=== PATIENT | female | born 1955 | race Caucasian/White ===

== ENCOUNTER → 2020-03-30 | Outpatient (CLI) | payer OTHER, SELFPAY ==
--- NOTE | 2020-03-30 | IMM_PTH ---
PATIENT: MANSI HERNANDEZ LOC: [facility] U#:[id number] AGE/SX: 65/F ROOM: RE03/30/[address]: Dr. Julioceasr Mart MD : 1955 BED: DIS: 03/30/2020 SPEC #: [id number] RECD: 04/04/20 12:08 STATUS: BARNEY REManav #: [id number] AMADEO: 03/30/20 00:[address]: Juliocesar Mart DEPT: IMMUNOHISTOCHEMISTRY RECD BY: Sandra Samson ENTERED: 04/04/20 12:09 SP TYPE: IMMUNO OTHR DR: Dr. Danny Arreguin MD Tissues: A - Right breast, NOS B - Right breast, NOS C - Right breast, NOS Procedures: SMA (add) Calponin-1(initial) CALPONIN-1 (add) CK5-6 (add) CK8 (add) CLAY-2 (add) E-CAD (add) ER (add) HER2 [place] (add) KI-67 (add) P53 (add) [place] (add) Pankeratin (add) P40 (add) PHYSICIAN & [place] [phone] SPECIMEN INFORMATION: Tissue Source: A - Right breast deep mass behind nipple, B - Right breast 1 o'clock, C - Right breast 2?o'clock Clinical Info: Right breast mass x3 Specimen Number: [id number] A-C CPT code: 39534 x3, 15218 x16, 07987 x3 METHODOLOGY: Deparaffinized sections of prefer/formalin-fixed tissue or PAP/DQ stained slides are incubated with monoclonal/polyclonal antibodies/oligonucleotide probes. Localization is made via biotin free immunoperoxidase method. Appropriate controls are performed and reacted as expected. Results on target cell population are indicated in the following table: RESULTS: ANTIBODY / CLONE RESULT Block A Calponin-1 (AT082W) positive CK5-6 (D5 & 1684) positive AE1-3 (AE1/AE3/PCK26) positive Actin (1A4) positive Block B Calponin-1 (OA297A) negative CK5-6 (D5 & 1684) positive AE1-3 (AE1/AE3/PCK26) positive Actin (1A4) negative P53 (DO-7) positive, rare cells Ki-67 (30-9) positive, low CK8 (77xxcgF70) positive Calponin-1 (IX898D) negative P40 (BC28) negative E-Cad (ECH-6) positive CLAY-2 (SP21) positive MORPHOMETRIC ANALYSIS ER (clone 6F11) >95%, strong intensity KY (clone 16/1E2) >95%, strong intensity Her-2Neu (clone CB11) 0 Block C Calponin-1 (HI727J) positive CK5-6 (D5 & 1684) positive AE1-3 (AE1/AE3/PCK26) positive Actin (1A4) positive The prognostic test for HER2 is performed on formalin-fixed paraffin embedded tissue. A 3+ (positive) staining pattern is defined as intense, homogeneous, complete, circumferential membranous staining in >10% of contiguous tumor cells. A similar weak (2+) staining pattern is interpreted as equivocal. PAKO follow-up testing is recommended for all equivocal cases. Positivity/negativity for ER/KY is reported if > or < 1% of the tumor cells are immuno- reactive, respectively. The ASCO/CAP criteria is used for scoring. Reference: Journal of Clinical Oncology, 2013; 31:1490-0190 & 2010; 16:4364-7541. Duration of fixation: 28 Hrs; Sample Adequate: Yes. These assays have not been validated on decalcified tissues. Results should be interpreted with caution given the likelihood of false negativity on decalcified specimens. These tests were developed and their performance characteristics determined by [facility]. They may not have been cleared or approved by the U.S. Food and Drug Administration. The FDA has determined that such clearance or approval is not necessary. The above immunohistochemical/dualISH markers are ordered and reviewed by the Pathologist. INTERPRETATION: A. Right breast deep mass behind nipple, biopsy: Encapsulated papillary carcinoma. B. Right breast 1 o'clock, biopsy: Invasive ductal carcinoma, nuclear grade 2. Positive for estrogen receptors (favorable prognostic indicator). Positive for progesterone receptors (favorable prognostic indicator). Negative for overexpression of NLY0evm. C. Right breast 2?o'clock, biopsy: Encapsulated papillary carcinoma. AM:juan 04/24/20
[2020-03-30 13:45] VITALS: BMI 40.4
--- NOTE | 2020-03-30 14:30 | BRBX_PTH ---
PATIENT: MANSI HERNANDEZ LOC: [facility] U#:[id number] AGE/SX: 65/F ROOM: RE03/30/[address]: Dr. Juliocesar Mart MD : 1955 BED: DIS: 03/30/2020 SPEC #: [id number] RECD: 03/30/20 15:34 STATUS: BARNEY JULIO CÉSAR #: [id number] AMADEO: 03/30/20 14:[address]: Juliocesar Mart DEPT: SURGICAL PATHOLOGY RECD BY: Letty Chavarria ENTERED: 04/03/20 09:23 SP TYPE: BREAST BX OTHR DR: Dr. Danny Arreguin MD Tissues: A - Right breast, NOS B - Right breast, NOS C - Right breast, NOS Procedures: Surgery Specimen Level IV HEADER OPERATION: Right breast biopsy x3 PRE-OP DIAGNOSIS: Right breast mass x3 TISSUE SUBMITTED: A - Right breast deep mass behind nipple, B - Right breast 1 o'clock superficial, C - Right breast 2 o'clock MICROSCOPIC DIAGNOSIS A. Right breast, deep mass behind nipple, needle core biopsy: Encapsulated papillary carcinoma. See comment. B. Right breast at 1 o'clock, superficial, needle core biopsy: Invasive ductal carcinoma, nuclear grade 2. See comment. C. Right breast, 2 o'clock, needle core biopsy: Encapsulated papillary carcinoma. See comment. AM:juan 04/10/20 COMMENT A-C. Immunohistochemistry ([id number]) supports the above diagnosis. B. ER/NV/Cog7gdy studies are being performed on sections of tumor and the results from this study will be reported separately ([id number]). This case was seen in consultation with Dr. Gibson of [place]. Please see complete consultative report in EMR. Case has been reviewed in consultation with Dr. Rosenbaum who concurs with the above diagnosis. IDC:SJ MICROSCOPIC DESCRIPTION Slides are reviewed. GROSS DESCRIPTION A - Received in fixative is one container labeled with the patient's name and designated right breast deep below nipple. The specimen consists of multiple elongated fragments of robbins-yellow fibroadipose tissue that in aggregate measure 1.5 x 0.2 x 0.1 cm. The specimen is totally submitted in one cassette. B - Received in fixative is one container labeled with the patient name and designated 10 o'clock right breast. The specimen consists of multiple elongated fragments of robbins-yellow fibroadipose tissue that in aggregate measure 2.5 x 0.4 x 0.1 cm. The entire specimen is submitted in one cassette. C - Received in fixative is one container labeled with the patient name and designated right breast 2 o'clock. The specimen consists of multiple elongated fragments of robbins-yellow fibroadipose tissue that in aggregate measure 2 x 0.3 x 0.1 cm. The entire specimen is submitted in one cassette. / SJ:rg 04/03/20 TC:0 CPT: 62078 x3
== END | disposition home or self-care (01) ==
LOC: LABSPEC 15:46
PROVIDERS: PCP Family Medicine; Referring Provider Surgery; Visit Provider Surgery
DX: N63.10 Unspecified lump in the right breast, unspecified quadrant (principal)
CPT/HCPCS: 88305; 88341; 88342

== ENCOUNTER → 2020-04-21 | Outpatient (CLI) | payer OTHER, SELFPAY ==
[2020-03-30 13:45] VITALS: BMI 40.4
--- NOTE | 2020-04-21 09:13 | MRI_ITS ---
STUDY: BILATERAL BREAST MR WITHOUT AND WITH CONTRAST REASON FOR EXAM: Female, 65 years old. New RIGHT breast cancer TECHNIQUE: Multi-sequence multi-echo imaging of both breasts was performed with a dedicated breast coil. T1-weighted and T2-weighted images were performed before the administration of contrast. T1-weighted images were also performed after the administration of IV DOTAREM 20CC without complications. COMPARISON: Mammogram studies dated 02/16/2020 and 02/24/2020. Breast ultrasounds dated 02/24/2020 and 03/30/2020 were also reviewed. FINDINGS: RIGHT BREAST: The breast tissue is scattered fibroglandular densities with minimal background enhancement. There are enhancing masses seen in the medial aspect of the right breast. These are located both superiorly and inferiorly within the breast. 2 were biopsied and shown to represent malignancy reportedly. The largest is located medially near the 3 o''clock position measuring approximately 15 mm. This is the largest mass. I do not have the pathology report available for review. There is increased enhancement involving the medial aspect of the right breast. Dedicated ultrasonography of the entire medial aspect of the right breast is recommended. Other areas may need to be biopsied prior to the patient being taken to surgery or the patient and her surgeon may opt to have the medial aspect of the breast removed in order to be sure that all of these areas are included in the lumpectomy site. There are enhancing axillary lymph nodes however they do appear to have fatty hilums. LEFT BREAST: The breast tissue is fatty with minimal background enhancement. There are no abnormal enhancing masses or areas of non-mass enhancement in the left breast. There are no enlarged or abnormal lymph nodes. There is no abnormality in the visualized regions of the chest or liver. MRI/Breast Bilateral W/O and W IMPRESSION: There are malignant appearing masses in the medial aspect of the right breast. There are additional masses seen on the MRI that were not biopsied. Dedicated ultrasonography of the entire right breast is recommended unless the patient and her physician opt to have the entire medial aspect of the breast surgically removed at the time of the lumpectomy. CATEGORY: BIRADS Category 6: Known Biopsy-Proven Malignancy - Appropriate Action Should Be Taken. A letter regarding these results will be sent to the patient by the facility within 30 days. Electronically Signed: Lavonne Bender DO at 12:53 EDT Tel , Service support ,
== END | disposition home or self-care (01) ==
LOC: MRI 09:13
PROVIDERS: PCP Family Medicine; Referring Provider Surgery; Visit Provider Surgery
DX: C50.919 Malignant neoplasm of unspecified site of unspecified female breast (principal)
CPT/HCPCS: 77049; A9575; A4216; C8908

== ENCOUNTER 2020-04-26 14:08 | Observation (INO) | payer OTHER, SELFPAY ==
[2020-03-30 13:45] VITALS: BMI 40.4
--- NOTE | 2020-04-19 15:05 | EKG12_ITS ---
Test Reason : PRE OP Blood Pressure : / mmHG Vent. Rate : 083 BPM Atrial Rate : 083 BPM P-R Int : 158 ms QRS Dur : 092 ms QT Int : 392 ms P-R-T Axes : 049 -19 024 degrees QTc Int : 460 ms Normal sinus rhythm Normal ECG Confirmed by MEGAN BULLOCK ([id number]), news assignment editor TONE HOBBS ([id number]) on 04/24/2020 12:06:35 PM Referred By: Juliocesar Mart Confirmed By:MEGAN BULLOCK
[2020-04-19 16:56] LABS: Absolute Lymphocyte Count 2.68 X10^3/uL (0.83-4.51); Basophil# 0.03 X10^3/uL; Basophil% 0.5 % (0-1); Eosinophil# 0.21 X10^3/uL; Eosinophils% 3.4 % (0-5); Hematocrit 37.2 % (37-47); Hemoglobin 12.5 g/dL (12.0-15.0); Lymphocyte # 2.68 X10^3/ul (4.0); Mean Corp Hgb Conc 33.6 g/dL (32-36); Mean Corpuscular Volume 89.4 fL (81-99); Mean Platelet Vol. 9.5 fl (6.2-12.0); Monocyte# 0.34 X10^3/uL; Monocyte% 5.5 % (0-10); NRBC Flagged by Analyzer 0 % (0-5); Neutrophil # 2.97 X10^3/uL (2.7-7.7); Neutrophil % 47.6 % (47-70); Platelet Count 261 K/mm3 (150-450); RBC Distribution Width CV 12.7 % (11.6-14.6); RBC Distribution Width SD 40.9 fl (35.1-43.9); Red Blood Count 4.16 M/mm3 (4.2-5.4); White Blood Count 6.2 K/mm3 (4.4-11.0)
[2020-04-19 17:14] LABS: Anion Gap 4 (5-15); BUN 11 mg/dL (7-18); BUN/Creat Ratio 19.6 RATIO (10-20); Calcium,Total 8.8 mg/dL (8.5-10.1); Chloride 108 mmol/L (98-107); Creatinine, Serum 0.56 mg/dL (0.55-1.02); EST Glomerular Filtration Rate 116 mL/min (>60); Est Glom Filt Rate - Afr Amer 140 mL/min (>60); Glucose 79 mg/dL (74-106); Potassium 3.6 mmol/L (3.5-5.1); Sodium Level 138 mmol/L (136-145)
[2020-04-19 17:32] LABS: Thyroid Stim Hormone (TSH) 0.06 uIU/mL (0.358-3.74)
[2020-04-26] VITALS (14 sets, daily range): BP systolic 132–174; BP diastolic 67–92; PULSE 68–89; RESP 16–18; TEMP 36.4–36.8; O2SAT 93–99; BMI 41.2
--- NOTE | 2020-04-26 | IMM_PTH ---
PATIENT: MANSI HERNANDEZ LOC: [facility] U#:[id number] AGE/SX: 65/F ROOM: [place]307 RE04/26/[address]: Dr. Juliocesar Mart MD : 1955 BED: 1 DIS: 04/27/2020 SPEC #: [id number] RECD: 05/01/20 11:42 STATUS: BARNEY REQ #: [id number] AMADEO: 04/26/20 00:[address]: Juliocesar Mart DEPT: IMMUNOHISTOCHEMISTRY RECD BY: Sandra Samson ENTERED: 05/01/20 11:45 SP TYPE: IMMUNO OTHR DR: Dr. Danny Arreguin MD Tissues: A - Axillary lymph node, NOS B - Right breast, NOS Procedures: E-CAD (initial) CALPONIN-1 (add) CK7 (add) Pankeratin (initial) Pankeratin (add) P40 (add) PHYSICIAN & INSTITUTION [place] [id number] SPECIMEN INFORMATION: Tissue Source: A - [place] nodes right breast, B - Right breast Clinical Info: Malignant neoplasm of right breast Specimen Number: [id number] A1-3, B8 CPT code: 62117 x2, 31508 x7 METHODOLOGY: Deparaffinized sections of prefer/formalin-fixed tissue or PAP/DQ stained slides are incubated with monoclonal/polyclonal antibodies/oligonucleotide probes. Localization is made via biotin free immunoperoxidase method. Appropriate controls are performed and reacted as expected. Results on target cell population are indicated in the following table: RESULTS: ANTIBODY / CLONE RESULT Block A1 AE1-3 (AE1/AE3/PCK26) positive (micrometastasis) CK7 (OV-TL12/30) positive (micrometastasis) Block A2 AE1-3 (AE1/AE3/PCK26) negative CK7 (OV-TL12/30) negative Block A3 AE1-3 (AE1/AE3/PCK26) negative CK7 (OV-TL12/30) negative Block B8 P40 (BC28) negative * Calponin-1 (NI245G) negative * E-Cad (ECH-6) positive *?Focally positive in the area of encapsulated papillary carcinoma. These tests were developed and their performance characteristics determined by [facility]. They may not have been cleared or approved by the U.S. Food and Drug Administration. The FDA has determined that such clearance or approval is not necessary. The above immunohistochemical/dualISH markers are ordered and reviewed by the Pathologist. INTERPRETATION: A. [place] lymph nodes, right, biopsy: One out of four lymph nodes positive for micrometastatic carcinoma (0.5 mm in greatest dimension). B. Right breast, mastectomy: Foci of encapsulated papillary carcinoma with adjacent areas of invasive ductal carcinoma. SJ:juan 05/02/20 Case has been reviewed in consultation with Dr. Gaitan who concurs with the above diagnosis. IDC:AM
--- NOTE | 2020-04-26 | AXNB_PTH ---
PATIENT: MANSI HERNANDEZ LOC: [facility] U#:[id number] AGE/SX: 65/F ROOM: [facility] RE04/26/[address]: Dr. Juliocesar Mart MD : 1955 BED: 1 DIS: 04/27/2020 SPEC #: [id number] RECD: 04/26/20 12:51 STATUS: BARNEY REManav #: [id number] AMADEO: 04/26/20 00:[address]: Juliocesar Mart DEPT: SURGICAL PATHOLOGY RECD BY: Sandra Samson ENTERED: 04/26/20 13:15 SP TYPE: AX NODE BX OTHR DR: Dr. Danny Arreguin MD Tissues: A - Axillary lymph node, NOS B - Right breast, NOS Procedures: Frozen Section (charge) Frozen Section Add'l ([facility]) Surgery Specimen Level V Surgery Specimen Level HEADER OPERATION: Breast mastectomy with sentinel lymph node biopsy PRE-OP DIAGNOSIS: Malignant neoplasm of overlapping sites of right breast; ER positive TISSUE SUBMITTED: A - [place] nodes right breast, FS, B - Right breast, short stitch - superior, long stitch - lateral FROZEN SECTION DIAGNOSIS A. [place] lymph nodes, right, biopsy: Four out of four lymph nodes, negative for metastatic carcinoma. SJ:juan 04/26/20 MICROSCOPIC DIAGNOSIS A. [place] lymph nodes, right, biopsy: One out of four lymph nodes is positive for micrometastatic carcinoma (0.5 mm in greatest dimension). B. Right breast, mastectomy: Three foci of encapsulated papillary carcinoma with adjacent invasive ductal carcinoma. cancer summary below. SJ:juan 05/01/20 BREAST CANCER SUMMARY Procedure - total mastectomy (including nipple and skin) Specimen laterality - right Invasive tumor: Tumor site - medial portion of the breast and 4 cm lateral to the first lesion. Tumor size - size of greatest invasive focus - 0.3 x 0.2 cm Histologic type - invasive ductal carcinoma (no special type) Histologic grade ([place] grade): Glandular/tubular differentiation score - 2 Nuclear pleomorphism score - 1 Mitotic count score - 1 Overall grade - grade 1 (score of 4) Tumor focality - multiple foci of invasive carcinoma, adjacent to encapsulated papillary carcinoma. Number of foci - 3 Size of individual foci - two larger foci - 0.3 x 0.2 cm and third focus 0.2 x 0.2 cm. 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 Number of blocks with DCIS - 5 Architectural pattern - encapsulated papillary carcinoma, micropapillary and cribriform.. Nuclear grade - grade 2 Necrosis - not identified Lobular Carcinoma In Situ - not identified Tumor Extension: Skin - skin is present and not involved Nipple - DCIS does not involve nipple epidermis. Skeletal muscle - no skeletal muscle is present. Margins - invasive carcinoma and ductal carcinoma in situ are 1.2 cm away from the closest posterior margin of the excision. Regional Lymph Nodes: Total number of lymph nodes examined - 4 Number of sentinel lymph nodes examined - 4 Number of lymph nodes with micrometastases, - 1 Number of lymph nodes with macrometastases and isolated tumor cells - 0 Extranodal extension - not seen. Treatment effect - no known presurgical therapy. Lymphvascular invasion - not identified Dermal lymphvascular invasion - not identified Additional Pathologic Findings - changes consistent with previous biopsy site. Fibrocystic changes and intraductal hyperplasia with focal atypia. Ancillary Studies: Previously performed on same tumor (/ [id number]) ER: positive, >95%, strong intensity NE: positive, >95%, strong intensity Kla2dkm: negative (0) Microcalcifications - not identified Clinical History - Please make reference to previous specimen () right breast, deep mass behind nipple, needle core biopsy with diagnosis of encapsulated papillary carcinoma, right breast at 1 o'clock, superficial, needle core biopsy with diagnosis of invasive ductal carcinoma and right breast at 2 o'clock, needle core biopsy with diagnosis of encapsulated papillary carcinoma. Radiologic finding - not provided Pathologic Stage: pT1a(m) pN1mi pMx The above summary is in compliance with [employer] [place] [employer] (CAP) Cancer Protocols Checklist and [place] Joint Committee on Cancer (AJCC), Staging Manual, 8th Ed. COMMENT A. Immunohistochemistry ([id number]) supports the diagnosis of micrometastasis in one lymph node and it measures 0.5mm in greatest dimension. Extranodal extension is not seen. IHC ([id number]) supports the diagnosis of additional three out of three lymph nodes negative for metastatic carcinoma. B. Three foci of encapsulated papillary carcinoma are noted. The largest is present in blocks 5-7 and two smaller are noted in block 8 at the distance of 0.7 cm. Immunohistochemistry ([id number]) supports the above diagnosis of invasive carcinoma adjacent to the encapsulated papillary carcinoma. Case has been reviewed in consultation with Dr. Gaitan who concurs with the above diagnosis. IDC:AM MICROSCOPIC DESCRIPTION Slides are reviewed. GROSS DESCRIPTION A - Received fresh for frozen section diagnosis labeled with the patient's name is a specimen designated sentinel lymph nodes, right breast. The specimen consists of three pieces of yellow adipose tissue containing nodules measuring in aggregate 2.5 x 2.5 x 0.5 cm. The largest nodule measures 1.7 cm in greatest dimension. The entire specimen is submitted for frozen section diagnosis in three cassettes as follows: 1 - one lymph node, 2 - two lymph nodes, one lymph node inked black, 2 - one bisected lymph node. / SJ:rg 04/26/20 B - Received in fixative is one container labeled with the patient's name and designated right breast. The specimen consists of a mastectomy measuring 21 x 19 x 5 cm. The anterior surface contains a grossly unremarkable ellipse of skin measuring 19 x 5.5 cm that contains a centrally located nipple and areola. The specimen weighs 844 gm. The specimen is differentially inked as follows: posterior - black, superior - blue and inferior - green. Serial sections reveal a firm, robbins-white speculated lesion measuring 2 x 1 x 1 cm located in the medial portion of the breast. Lateral to this lesion at a distance 4 cm is an area of gel-filled biopsy cavity measuring 1.5 x 0.8 x 0.8 cm. The gel-filled biopsy cavity mass is located 1.2 cm from the closest (posterior) margin of excision. The remainder of the breast parenchyma is robbins-yellow with rare fibrous streaks. [employer] sections are submitted in 12 cassettes as follows: 1??nipple and areola, 2 - perpendicular superior and inferior margins, 3 - perpendicular medial margin, 4??perpendicular lateral margin, 5-7 - mass, totally submitted, 8-10 - gel-filled biopsy cavity, totally submitted, 11-12 - [employer] sections of uninvolved breast parenchyma adjacent to and away from tumor. / AM:juan 04/27/20 TC:0 CPT: 19329, 79863, 47381, 06535 x2 ADDENDUM ADDENDUM ADDENDUM ADDENDUM ADDENDUM ADDENDUM ADDENDUM ADDENDUM 05/23/2020 09:08 ADDENDUM 05/23/2020 09:08 ADDENDUM 05/23/2020 09:08 ADDENDUM 05/23/2020 09:08 ADDENDUM 05/23/2020 09:08 An order for Oncotype testing was received from Dr. Mi. This necessitated case review, block and slide selection by pathologist at [facility]. Breast Cancer Recurrence Score = 11 Results of the complete Oncotype testing ([facility] report) are viewable in EMR under: Reports - Pathology - Lab Pathology Report, Scanned.
--- NOTE | 2020-04-26 08:00 | NM_ITS ---
PROCEDURE: NUCLEAR MEDICINE Injection [place] Node - RIGHT breast(s). REASON FOR EXAM: Female, 65 years old. Right breast cancer. TECHNIQUE: [place] node localization using radionuclide methods of the RIGHT breast(s) was performed following subcutaneous administration of 1.2 mCi of of sulfur colloid Tc-99m. NM/Lymph Node Injection Only IMPRESSION: 1.2 mCi of technetium labeled sulfur colloid was injected subcutaneously in 4 equal aliquots at the biopsy site. Electronically Signed: Martin Hearn, at 9:30 EDT , Service support ,
[2020-04-26] MEDS: Lactated Ringers 1,000 ML 100 ML IV (08:27)
--- NOTE | 2020-04-26 10:37 | PCM.HP.STD ---
Problem List (1) Breast cancer, right Status: Acute Qualifiers: Breast location: overlapping sites of breast Estrogen receptor status: positive Patient sex: female Qualified Code(s): C50.811 - Malignant neoplasm of overlapping sites of right female breast; Z17.0 - Estrogen receptor positive status [ER+] History of Present Illness Date of Admission: 04/26/20 The patient is a 65 year old F who had previous biopsies that showed atypical cells. I repeated biopsies in the office which showed invasive ductal carcinoma as well as 2 areas of papillary carcinoma. Past Medical History Medical History: Medical History (Last Updated 04/13/20 @ 13:19 by Mirlande Shetty) Anxiety and depression F41.9, F32.9 Breast cancer C50.919 Hyperlipidemia E78.5 Hypothyroidism E03.9 Allergies No Known Allergies Allergy (Verified 04/26/20 08:01) Home Medications: Ambulatory Orders Medication Instructions Recorded atorvastatin 40 mg tablet 40 mg PO DAILY 03/27/20 levothyroxine 200 mcg capsule 200 mcg PO DAILY 03/27/20 magnesium 250 mg tablet 250 mg PO DAILY 03/27/20 sertraline 100 mg tablet 100 mg PO DAILY tab 03/27/20 Meloxicam [Mobic] 15 mg PO PRN PRN 04/19/20 Surgical History: Surgical History (Last Reviewed 03/30/20 @ 13:44 by Mirlande Shetty) History of 3 sections Z98.891 Tobacco Use: Vapor Review of Systems Constitutional: Denies: Anorexia, Fever HEENT: Denies: Difficulty Swallowing Cardiovascular: Denies: Chest Pain Respiratory: Denies: Cough, Shortness of Breath Gastrointestinal: Denies: Abdominal Pain, Nausea, Melena Genitourinary: Denies: Dysuria Skin: Denies: Jaundice Neurological: Denies: Blurred vision Hematologic/ Lymphatic: Denies: Anemia VTE Information - Inpt Only VTE Present on Admission: No VTE Mechan Device Prophylaxis: SCD's Patient Problems: Active and Suspected Problems (Last Updated 04/13/20 @ 13:19 by Mirlande Shetty) Breast cancer, right (Acute) - Physical Exam Vitals/I&O's: Vital Signs Temp Pulse Resp BP Pulse Ox 97.6 F L 79 16 132/80 H 98 04/26/20 08:10 04/26/20 08:10 04/26/20 08:10 04/26/20 08:10 04/26/20 08:10 Oxygen Delivery Method Room Air Weight: 247 lb 12.793 oz Body Mass Index (BMI) 41.2 General: Alert, Oriented x3 Lungs: Normal air movement Cardiovascular: Regular rate, Regular Rhythm Abdomen: Soft, Non Tender, Non-Distended Current Medications Lactated Ringer's () 1,000 mls @ 100 mls/hr IV .Q10H RUDY Last Admin: 04/26/20 08:27 Dose: 100 mls/hr Documented by: Assessment/Plan All Active Problems (Last Updated 04/13/20 @ 13:19 by Mirlande Shetty) Breast cancer, right (Acute) 65-year-old female with right breast cancer 1. The patient has multifocal disease of the right breast. She has 2 areas of papillary carcinoma as well as an area of invasive ductal carcinoma. I discussed this with her in detail in the office last week. I ordered an MRI which showed no disease in the left side. I recommended simple mastectomy on the right as well as sentinel lymph node biopsy. I discussed this with her in detail as well as the risks of bleeding, infection, flap necrosis, nerve injury, lymphedema, need for axillary dissection. The patient understood all the risks and is well to proceed. We discussed the current risks associated with COVID-19. While it is understood that there is a community spread of COVID-19, the risk of clay COVID-19 while at [facility] ([facility]) is very low; however, the risk cannot be completely mitigated because of the community spread of the disease. We discussed in detail the risk of exposure to and/or potential harm posed by the COVID-19 virus with having a surgery/procedure at this time versus the risk of delaying the surgery/procedure. It is not possible to know either the risk of delaying the surgery or procedure or chance of getting an infection with perfect accuracy, but a joint decision was made to proceed at this time with the scheduled surgery/procedure as indicated on the consent form. Patient was notified that we will need to comply with any screening or testing [facility] wishes to perform or that surgery may be delayed for any positive results. Juliocesar Mart MD Pager: [facility] [address] [place] [address], [address] [place] [address] Office:
[2020-04-26] MEDS: 0.9% Normal Saline (Pres. free 10 ML Vial (11:20)
[2020-04-26] MEDS: Bupivacaine Mpf 0.5% 30 ML VIAL (13:21)
--- NOTE | 2020-04-26 14:00 | OP.PCM_ITS ---
Problem List (1) Breast cancer, right Status: Acute Qualifiers: Breast location: overlapping sites of breast Estrogen receptor status: positive Patient sex: female Qualified Code(s): C50.811 - Malignant neoplasm of overlapping sites of right female breast; Z17.0 - Estrogen receptor positive status [ER+] Report of Operation Date of Procedure: 04/26/20 Pre-Operative Diagnosis: Right breast cancer Post-Operative Diagnosis: Same Surgery/Procedure Performed:: 1. Right simple mastectomy. 2. Right sentinel lymph node biopsy with injection of blue dye Specimen's removed: 1. Right breast. 2. Right axillary sentinel lymph node Drains: MAGUE to bulb suction Estimated Blood Loss (mL): 50 Description of Procedure: Patient was brought back to the operating room and general anesthesia was induced. The right area alert region was cleaned with alcohol and injected with 5 cc of half percent methylene blue. 5 cc of saline were then injected behind it and the breast was massaged for 5 minutes. The right breast and axillary region were prepped in the normal sterile fashion. An elliptical incision was made around the nipple on the right side. Flaps was raised superiorly using electrocautery. Next inferior flap was created using electrocautery as well. The posterior fascia of the breast was grasped with a Aye medially and working in a medial lateral fashion the breast was removed from the pectoralis muscle. The lateral attachments of the breast were divided and the breast was sent for pathology. Next through the incision the axillary fascia was incised and the radiotracer was used to locate several blue lymph nodes. These were clipped at their lymphatics and removed an ex vivo 10-second count was performed and there was no remaining blue lymph node or palpable lymph node or rad ioactive lymph nodes. Hemostasis was obtained in the axilla using clips. The pectoralis region and the flaps were irrigated copiously and suctioned dry. Hemostasis was obtained usual electrocautery. A drain was placed to the skin in the right lateral chest wall and placed over the pectoralis muscle under the flaps. The area was sprayed with Payam powder. The drain was sutured to the skin using a 3-0 nylon suture. Interrupted 3-0 Vicryl sutures were used to reapproximate the dermis. The epidermis was reapproximated using a running 4-0 Monocryl suture. Dermabond glue was then applied as well as bandages and an Sloan wrap. MAGUE was placed to bulb suction. Patient was awoken and taken to PACU in stable condition. - Admit VTE Documentation VTE Mechan Device Prophylaxis: SCD's
[2020-04-26] MEDS: 0.9% Normal Saline 1,000 ML 60 ML IV (17:00)
[2020-04-26] MEDS: Atorvastatin Calcium 40 MG Tablet PO (21:42)
[2020-04-26] MEDS: Acetaminophen 325 MG Tablet 650 MG PO (21:42)
[2020-04-26] MEDS: oxyCODONE 5 MG Tablet PO (21:43)
[2020-04-27 01:40] VITALS: BP 130/69; PULSE 72; RESP 16; TEMP 36.4; O2SAT 96
[2020-04-27] MEDS: oxyCODONE 5 MG Tablet PO ×2 (01:44→08:51)
[2020-04-27] MEDS: Acetaminophen 325 MG Tablet 650 MG PO (01:46)
[2020-04-27 05:05] VITALS: BP 127/75; PULSE 62; RESP 18; TEMP 36.6; O2SAT 92
[2020-04-27] MEDS: Levothyroxine 100 MCG Tablet 200 MCG PO (05:13)
[2020-04-27 06:03] LABS: Absolute Lymphocyte Count 1.46 X10^3/uL (0.83-4.51); Absolute Neutrophil Count 7.7 X10^3/uL (2.0-7.7); Basophil# 0.02 X10^3/uL; Basophil% 0.2 % (0-1); Hemoglobin 11.3 g/dL (12.0-15.0); Lymphocyte # 1.46 X10^3/ul (4.0); Mean Corp Hgb Conc 32.3 g/dL (32-36); Mean Corpuscular Hgb 30.1 pg (27.0-32.0); Mean Corpuscular Volume 93.1 fL (81-99); Mean Platelet Vol. 9.6 fl (6.2-12.0); Monocyte% 5.1 % (0-10); NRBC Flagged by Analyzer 0 % (0-5); Neutrophil # 7.72 X10^3/uL (2.7-7.7); Neutrophil % 79.4 % (47-70); Platelet Count 231 K/mm3 (150-450); RBC Distribution Width CV 12.9 % (11.6-14.6); RBC Distribution Width SD 43.6 fl (35.1-43.9); Red Blood Count 3.76 M/mm3 (4.2-5.4); White Blood Count 9.7 K/mm3 (4.4-11.0)
--- NOTE | 2020-04-27 06:03 | NURSING ---
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 Tolerated well.
[2020-04-27 06:19] LABS: Anion Gap 4 (5-15); BUN 17 mg/dL (7-18); BUN/Creat Ratio 24.8 RATIO (10-20); Calcium,Total 8.1 mg/dL (8.5-10.1); Chloride 107 mmol/L (98-107); Creatinine, Serum 0.69 mg/dL (0.55-1.02); EST Glomerular Filtration Rate 92 mL/min (>60); Est Glom Filt Rate - Afr Amer 111 mL/min (>60); Estimated Creatinine Clearance 74.12 ml/min; Glucose 129 mg/dL (74-106); Sodium Level 137 mmol/L (136-145)
--- NOTE | 2020-04-27 08:41 | DCINST_ITS ---
Discharge Diet: No Restrictions Discharge Activity: May Not Drive - for 2-3 days or while taking narcotic pain meds. May shower in (days): 1 Lifting Restrictions: 10 pounds for 1 week. Call your doctor if your incision/area has: Continuous Slow Oozing, Sudden In creased Bleeding, Increased Pain/ Swelling, Increased Redness, Foul Smelling Discharge, Swelling at the incision site Call your doctor if you observe: Fever of 101 or Higher Suture Line Care: Avoid Pulling/Pushing, Avoid Pinching/Bending Remove Dressing in (days):: 1 - Remove bulky dressing tomorrow. May leave any opsite dressing for 3-4 days. Keep dressing in place until your follow-up appointment. Drain: Suction Additional Dressing/Incision Instructions:: Remove bulky dressing tomorrow. Allergies/Adverse Reactions: Allergies No Known Allergies Allergy (Verified 04/26/20 08:01) Medications to take at Discharge atorvastatin 40 mg tablet 40 mg PO DAILY 03/27/20 levothyroxine 200 mcg capsule 200 mcg PO DAILY 03/27/20 magnesium 250 mg tablet 250 mg PO DAILY 03/27/20 sertraline 100 mg tablet 100 mg PO DAILY tab 03/27/20 Meloxicam [Mobic] 15 mg PO PRN PRN 04/19/20 Acetaminophen [Tylenol Tablet] 650 mg PO Q4H PRN PRN tablet 04/27/20 Oxycodone [Oxyir] 5 - 10 mg PO Q4H PRN PRN 5 Days #40 tablet 04/27/20 The following prescriptions were given: Oxycodone [Oxyir] 5 - 10 mg PO Q4H PRN PRN 5 Days #40 tablet PRN Reason: Pain Score 4-10/10 Transmission Status: Sent to [facility] Please Follow Up With: Juliocesar Mart MD When: Please call to schedule 1 week follow up appointment. [phone]
[2020-04-27] MEDS: Magnesium Oxide 400 MG Tablet PO (08:56)
[2020-04-27 08:58] VITALS: BP 139/73; PULSE 61; RESP 18; TEMP 37.1; O2SAT 94
[2020-04-27] MEDS: Sertraline 100 MG Tablet PO (09:25)
== END 2020-04-27 10:23 | disposition home or self-care (01) ==
LOC: SDC 14:21 → MS3 14:21
PROVIDERS: Anesthesiology; Admitting Provider Surgery; PCP Family Medicine; Referring Provider Surgery; Visit Provider Surgery
PROC: (CPT 19307; principal; 2020-04-26 10:45)
DX: C50.811 Malignant neoplasm of overlapping sites of right female breast (principal); Z17.0 Estrogen receptor positive status [ER+]; E03.9 Hypothyroidism, unspecified; E78.5 Hyperlipidemia, unspecified; F41.9 Anxiety disorder, unspecified; F32.9 Major depressive disorder, single episode, unspecified; Z79.899 Other long term (current) drug therapy; F17.290 Nicotine dependence, other tobacco product, uncomplicated
CPT/HCPCS: 00400; 19303; 38525; 36415; 38792; 80048; 84443; 85025; 87635; 88305; 88307; 88309; 88331; 88332; 88341; 88342; 93005; 99218; 99251; A9541; G2023; J7030; J7120; G0378; G0379; G0463; J2405; J3490; Q9968; U0003

== ENCOUNTER → 2020-06-20 | Outpatient (CLI) | payer OTHER, SELFPAY ==
[2020-06-13 10:16] VITALS: BMI 41.9
--- NOTE | 2020-06-20 08:40 | BD_ITS ---
STUDY: DUAL ENERGY X-RAY ABSORPTIOMETRY / DXA REASON FOR EXAM: Female, 65 years old. 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 COMPARISON: None. FINDINGS: Lumbar Spine (L1-L4): g/cm2 (1.210) / T-score (0.3) / Z-score (1.9) Findings are suggestive of normal bone density with a low fracture risk. Left Femur Total: g/cm2 (1.003) / T-score (0.0) / Z-score (1.1) Left Femoral Neck: g/cm2 (0.853) / T-score (-1.3) / Z-score (0.1) Right Femur Total: g/cm2 (0.968) / T-score (-0.3) / Z-score (0.8) Right Femoral Neck: g/cm2 (0.951) / T-score (-0.6) / Z-score (0.8) BD/Dexa Bone Density Study IMPRESSION: The patient is considered osteopenic as outlined below according to World Kishor Organization (WHO) criteria with a low fracture risk. Reference Information: The T-score is the number of standard deviations above or below the standard which is normal for young adults at their peak bone mineral density. The World Health Organization (WHO) interprets the T-scores as follows: Above -1 Normal bone density Between -1 and -2.5 Osteopenia Equal to / or below -2.5 Osteoporosis As a practical clinical guideline, osteopenia may be graded as follows: Mild -1 through -1.5 Moderate -1.6 through -2.0 Severe -2.1 through -2.4 The Z-score is the number of standard deviations above or below age-matched controls. A Z-score of less than -1.5 would be considered abnormal. References: 1. NIH Osteoporosis and Related Bone Diseases http://www.osteo.org 2. International Society for Clinical Densitometry http://www.iscd.org 3. National Osteoporosis Foundation http://www.nof.org Electronically Signed: Martin Hearn, at 10:46 EDT , Service support ,
== END | disposition home or self-care (01) ==
LOC: OPBD 08:22
PROVIDERS: PCP Family Medicine; Referring Provider Internal Medicine Hematology & Oncology; Visit Provider Internal Medicine Hematology & Oncology
DX: C50.811 Malignant neoplasm of overlapping sites of right female breast (principal); C50.911 Malignant neoplasm of unspecified site of right female breast; Z17.0 Estrogen receptor positive status [ER+]; Z79.899 Other long term (current) drug therapy
CPT/HCPCS: 77080

== ENCOUNTER → 2021-04-18 14:30 | Outpatient (CLI) | payer MEDICARE, OTHER, SELFPAY ==
[2021-04-18 14:07] VITALS: BMI 41.9
[2021-04-18 15:12] LABS: Absolute Lymphocyte Count 1.78 X10^3/uL (0.83-4.51); Absolute Neutrophil Count 3.2 X10^3/uL (2.0-7.7); Basophil# 0.03 X10^3/uL; Basophil% 0.5 % (0-1); Eosinophil# 0.18 X10^3/uL; Eosinophils% 3.3 % (0-5); Hemoglobin 12.4 g/dL (12.0-15.0); Lymphocyte # 1.78 X10^3/ul (0.83-4.51); Lymphocyte % 32.2 % (19-41); Mean Corp Hgb Conc 33.5 g/dL (32-36); Mean Corpuscular Hgb 31.2 pg (27.0-32.0); Mean Corpuscular Volume 93.2 fL (81-99); Mean Platelet Vol. 9.1 fl (6.2-12.0); Monocyte# 0.32 X10^3/uL; Monocyte% 5.8 % (0-10); NRBC Flagged by Analyzer 0 % (0-5); Neutrophil # 3.21 X10^3/uL (2.7-7.7); Platelet Count 255 K/mm3 (150-450); RBC Distribution Width CV 12.9 % (11.6-14.6); Red Blood Count 3.97 M/mm3 (4.2-5.4); White Blood Count 5.5 K/mm3 (4.4-11.0)
[2021-04-18 15:30] LABS: Hemoglobin A1c 5.4 % (3.8-5.6)
[2021-04-18 16:28] LABS: ALB/GLOB Ratio 1.1 RATIO (0.9-2.4); AST(SGOT) 14 U/L (15-37); Alanine Aminotransfer ALT/SGPT 24 U/L (13-56); Albumin, Serum 3.8 g/dL (3.2-5.0); Alkaline Phosphatase 84 U/L (45-117); Anion Gap 6 (5-15); BUN 10 mg/dL (7-18); BUN/Creat Ratio 15.5 RATIO (10-20); Calcium,Total 8.7 mg/dL (8.5-10.1); Chloride 107 mmol/L (98-107); Cholesterol 282 mg/dL (200); Creatinine, Serum 0.64 mg/dL (0.55-1.02); EST Glomerular Filtration Rate 98 mL/min (>60); Est Glom Filt Rate - Afr Amer 119 mL/min (>60); Globulin 3.4 g/dL (2.2-4.2); Glucose 83 mg/dL (74-106); High Density Lipoprotein 60 mg/dL; Potassium 3.6 mmol/L (3.5-5.1); Protein, Total 7.2 g/dL (6.4-8.2); Sodium Level 142 mmol/L (136-145); Triglycerides 215 mg/dL; Very Low Density Lipoprotein 43 mg/dL (5-40)
== END ==
PROVIDERS: PCP Internal Medicine; Referring Provider Internal Medicine; Visit Provider Internal Medicine
DX: E03.9 Hypothyroidism, unspecified (principal); E78.5 Hyperlipidemia, unspecified; E66.01 Morbid (severe) obesity due to excess calories
CPT/HCPCS: 36415; 80053; 80061; 83036; 84443; 85025

== ENCOUNTER → 2021-04-27 10:36 | Outpatient (CLI) | payer MEDICARE, OTHER, SELFPAY ==
[2021-03-06 13:33] VITALS: BMI 41.9
[2021-04-18 14:07] VITALS: BMI 41.9
--- NOTE | 2021-04-27 10:38 | BI_ITS ---
MAMMOGRAPHY - UNILATERAL SCREENING: LEFT BREAST REASON FOR EXAM: Female, 66 years old. Routine annual screening examination (unilateral). PERTINENT HISTORY: Personal history of breast cancer with right mastectomy. TECHNIQUE: Digital examination. Mediolateral oblique (MLO) and craniocaudad (CC) views of the breast were obtained. CAD: CAD was performed on this study. COMPARISON: 02/24/2020 FINDINGS: Breast Composition: The breast is almost entirely fatty. There are no dominant masses or suspicious calcifications. No other significant abnormalities are identified. BI/SCREEN MAMM (CAD) W/MARCO ANTONIO UNI L IMPRESSION: Stable screening mammogram. ASSESSMENT CATEGORY: BIRADS Category 1: Negative. A letter regarding these results will be sent to the patient by the facility within 30 days. FOLLOW UP RECOMMENDATION: Yearly follow up mammogram recommended. (A) [id number] Approximately 10% of breast cancers are not detected by mammography. A normal mammogram should not delay biopsy of a clinically suspicious abnormality. [id number] Electronically Signed: Robert Starks MD at 11:58 EDT , Service support ,
== END ==
PROVIDERS: PCP Internal Medicine; Referring Provider Internal Medicine Hematology & Oncology; Visit Provider Internal Medicine Hematology & Oncology
DX: Z12.31 Encounter for screening mammogram for malignant neoplasm of breast (principal)
CPT/HCPCS: 77063; 77067

== ENCOUNTER → 2021-06-12 15:35 | Outpatient (CLI) | payer MEDICARE, OTHER, SELFPAY ==
--- NOTE | 2021-06-12 15:37 | RAD_ITS ---
STUDY: X-RAY CHEST REASON FOR EXAM: Female, 66 years old. Chest pain and shortness of breath. TECHNIQUE: PA and lateral views of the chest. COMPARISON: None. FINDINGS: The lungs are clear and expanded. There is no demonstrated pleural abnormality. Normal size heart. Normal mediastinum and chris. Normal visualized pulmonary arteries. There is mild atherosclerotic calcification of the aortic arch with tortuosity. There are degenerative changes and levoscoliosis of the thoracic spine. Normal visualized ribs, clavicles, and shoulders. There is no demonstrated abnormality of the visualized soft tissue structures of the upper abdomen. RAD/Chest PA and Lateral IMPRESSION: Degenerative changes, as described above. No demonstrated acute cardiopulmonary process. Electronically Signed: Russel Cash DO at 16:08 EDT Tel [phone], Service support ,
== END ==
PROVIDERS: PCP Internal Medicine; Referring Provider Internal Medicine; Visit Provider Internal Medicine
DX: R06.02 Shortness of breath (principal); R07.89 Other chest pain; Z20.822 Contact with and (suspected) exposure to COVID-19
CPT/HCPCS: 71046; 87635; U0005; U0003

== ENCOUNTER → 2021-06-12 | Outpatient (CLI) | payer MEDICARE, OTHER, SELFPAY | END | disposition home or self-care (01) | LOC: LABSPEC 15:26 | PROVIDERS: PCP Internal Medicine; Referring Provider Internal Medicine; Visit Provider Internal Medicine | DX: R07.89 Other chest pain (principal) | CPT/HCPCS: 87635; U0005; U0003 ==

== ENCOUNTER → 2021-06-19 13:45 | Outpatient (CLI) | payer MEDICARE, OTHER, SELFPAY ==
[2021-06-19 15:39] LABS: Thyroid Stim Hormone (TSH) 0.39 uIU/mL (0.358-3.74)
== END ==
PROVIDERS: PCP Internal Medicine; Referring Provider Internal Medicine; Visit Provider Internal Medicine
DX: E03.9 Hypothyroidism, unspecified (principal)
CPT/HCPCS: 36415; 84443

== ENCOUNTER → 2022-04-29 | Outpatient (CLI) | payer MEDICARE, OTHER, SELFPAY ==
--- NOTE | 2022-04-29 12:34 | BI_ITS ---
MAMMOGRAPHY - UNILATERAL SCREENING: LEFT BREAST REASON FOR EXAM: Female, 67 years old. Routine annual screening examination (unilateral). PERTINENT HISTORY: Personal history of breast cancer with previous right mastectomy. TECHNIQUE: Digital examination. Mediolateral oblique (MLO) and craniocaudad (CC) views of the breast were obtained. CAD: CAD was performed on this study. COMPARISON: 04/27/2021 FINDINGS: Breast Composition: The breast is almost entirely fatty. There are no dominant masses or suspicious calcifications. No other significant abnormalities are identified. BI/SCREEN MAMM (CAD) W/MARCO ANTONIO UNI L IMPRESSION: Stable screening mammogram. ASSESSMENT CATEGORY: BIRADS Category 1: Negative. A letter regarding these results will be sent to the patient by the facility within 30 days. FOLLOW UP RECOMMENDATION: Yearly follow up mammogram recommended. (A) [id number] Approximately 10% of breast cancers are not detected by mammography. A normal mammogram should not delay biopsy of a clinically suspicious abnormality. [id number] Electronically Signed: Robert Starks MD at 14:55 EDT ,
== END | disposition home or self-care (01) ==
LOC: OPBI 12:33
PROVIDERS: PCP Internal Medicine; Visit Provider Nurse Practitioner Family
DX: Z12.31 Encounter for screening mammogram for malignant neoplasm of breast (principal); Z85.3 Personal history of malignant neoplasm of breast; Z90.11 Acquired absence of right breast and nipple
CPT/HCPCS: 77063; 77067

== ENCOUNTER → 2022-06-25 | Outpatient (CLI) | payer MEDICARE, OTHER, SELFPAY ==
--- NOTE | 2022-06-25 09:58 | BD_ITS ---
STUDY: DUAL ENERGY X-RAY ABSORPTIOMETRY / DXA REASON FOR EXAM: Female, 67 years old. Screening. Patient is postmenopausal. TECHNIQUE: Bone Mineral Density (BMD) measurements of lumbar spine and bilateral hips were obtained. COMPARISON: Comparison is made with prior study 06/20/2020. FINDINGS: Lumbar Spine (L1-L4): g/cm2 (1.106) / T-score (0.5) / Z-score (2.4) Findings are suggestive of normal bone density with a low fracture risk. Left Femur Total: g/cm2 (1.080) / T-score (1.1) / Z-score (2.4) Left Femoral Neck: g/cm2 (0.726) / T-score (-1.1) / Z-score (0.5) Right Femur Total: g/cm2 (0.989) / T-score (0.4) / Z-score (1.7) Right Femoral Neck: g/cm2 (0.803) / T-score (-0.4) / Z-score (1.2) The T-Scores on the most recent prior examination were: Lumbar Spine (L1-L4): There has been worsening of bone density since the previous examination. Left Femur Total: which represents an improvement of 15.3%. Right Femur Total: which represents an improvement of 9.5%. BD/Dexa Bone Density Study IMPRESSION: The patient is considered osteopenic as outlined below according to World Kishor Organization (WHO) criteria with a low fracture risk. There has been improvement of bone density since the previous examination. Reference Information: The T-score is the number of standard deviations above or below the standard which is normal for young adults at their peak bone mineral density. The World Health Organization (WHO) interprets the T-scores as follows: Above -1 Normal bone density Between -1 and -2.5 Osteopenia Equal to / or below -2.5 Osteoporosis As a practical clinical guideline, osteopenia may be graded as follows: Mild -1 through -1.5 Moderate -1.6 through -2.0 Severe -2.1 through -2.4 The Z-score is the number of standard deviations above or below age-matched controls. A Z-score of less than -1.5 would be considered abnormal. References: 1. NIH Osteoporosis and Related Bone Diseases www osteo.org 2. International Society for Clinical Densitometry www iscd.org 3. National Osteoporosis Foundation www nof.org Electronically Signed: Martin Hearn MD at 15:05 EDT ,
== END | disposition home or self-care (01) ==
LOC: OPBD 09:50
PROVIDERS: PCP Internal Medicine; Visit Provider Nurse Practitioner Family
DX: M85.89 Other specified disorders of bone density and structure, multiple sites (principal); Z78.0 Asymptomatic menopausal state; Z13.820 Encounter for screening for osteoporosis; Z79.811 Long term (current) use of aromatase inhibitors
CPT/HCPCS: 77080

== ENCOUNTER → 2022-12-13 | Outpatient (CLI) | payer MEDICARE, OTHER, SELFPAY | END | disposition home or self-care (01) | LOC: SL 19:27 | PROVIDERS: PCP Internal Medicine; Visit Provider Nurse Practitioner Acute Care | DX: G47.10 Hypersomnia, unspecified (principal) | CPT/HCPCS: 95810 ==

== ENCOUNTER → 2023-04-17 | Outpatient (CLI) | payer MEDICARE, OTHER, SELFPAY ==
[2023-04-17 11:26] LABS: Hematocrit 37.9 % (37-47); Hemoglobin 12.7 g/dL (12.0-15.0); Mean Corp Hgb Conc 33.5 g/dL (32-36); Mean Corpuscular Hgb 31.3 pg (27.0-32.0); Mean Corpuscular Volume 93.3 fL (81-99); Mean Platelet Vol. 9.6 fl (6.2-12.0); Platelet Count 266 K/mm3 (150-450); RBC Distribution Width CV 12.4 % (11.6-14.6); RBC Distribution Width SD 42.5 fl (35.1-43.9); Red Blood Count 4.06 M/mm3 (4.2-5.4); White Blood Count 7.2 K/mm3 (4.4-11.0)
[2023-04-17 11:32] LABS: Hemoglobin A1c 5.2 % (3.8-5.6)
[2023-04-17 11:46] LABS: Anion Gap 7 (5-15); BUN 13 mg/dL (7-18); BUN/Creat Ratio 24.1 RATIO (10-20); Calcium,Total 8.8 mg/dL (8.5-10.1); Chloride 110 mmol/L (98-107); Creatinine, Serum 0.54 mg/dL (0.55-1.02); EST Glomerular Filtration Rate 120 mL/min (>60); Est Glom Filt Rate - Afr Amer 145 mL/min (>60); Glucose 101 mg/dL (74-106); Potassium 3.4 mmol/L (3.5-5.1); Sodium Level 142 mmol/L (136-145)
== END | disposition home or self-care (01) ==
LOC: PSN 04-24 15:54
PROVIDERS: PCP Internal Medicine; Referring Provider Physician Assistant; Visit Provider Physician Assistant
DX: Z01.818 Encounter for other preprocedural examination (principal); Z01.810 Encounter for preprocedural cardiovascular examination
CPT/HCPCS: 36415; 80048; 83036; 85027; 93005

== ENCOUNTER → 2023-06-18 | Outpatient (CLI) | payer MEDICARE, OTHER, SELFPAY ==
--- NOTE | 2023-06-18 11:14 | BI_ITS ---
MAMMOGRAPHY - UNILATERAL SCREENING: LEFT BREAST REASON FOR EXAM: Female, 68 years old. Routine annual screening examination (unilateral). PERTINENT HISTORY: Personal history of breast cancer. Prior right mastectomy. TECHNIQUE: Digital unilateral breast marco antonio (3D mammographic acquisition) in the CC and MLO projections. 2-D mediolateral oblique (MLO) and craniocaudad (CC) views of both breasts were obtained. CAD: Full Field Digital Mammography with Computer Added Detection was performed. COMPARISON: Comparison is made with prior study dated April 29, 2022 and April 27, 2021. FINDINGS: Breast Composition: The breasts are almost entirely fatty. There are no dominant masses or suspicious calcifications. No other significant abnormalities are identified. There has been no significant change since the prior study. BI/SCREEN MAMM (CAD) W/MARCO ANTONIO UNI L IMPRESSION: Stable unilateral screening mammogram. Yearly follow-up mammogram recommended. (A) ASSESSMENT CATEGORY: BIRADS Category 1: Negative. A letter regarding these results will be sent to the patient by the facility within 30 days. Approximately 10% of breast cancers are not detected by mammography. A normal mammogram should not delay biopsy of a clinically suspicious abnormality. [id number] Electronically Signed: Martin Hearn MD at 12:39 EDT ,
== END | disposition home or self-care (01) ==
LOC: OPBI 11:13
PROVIDERS: PCP Internal Medicine; Referring Provider Internal Medicine Hematology & Oncology; Visit Provider Internal Medicine Hematology & Oncology
DX: Z12.31 Encounter for screening mammogram for malignant neoplasm of breast (principal); Z85.3 Personal history of malignant neoplasm of breast
CPT/HCPCS: 77063; 77067

== ENCOUNTER 2024-03-25 10:00 | Outpatient (CLI) | payer MEDICARE, OTHER, SELFPAY ==
--- NOTE | 2024-03-25 13:51 | EKG12_ITS ---
Test Reason : PRE OP Blood Pressure : / mmHG Vent. Rate : 093 BPM Atrial Rate : 093 BPM P-R Int : 134 ms QRS Dur : 100 ms QT Int : 370 ms P-R-T Axes : 033 -65 044 degrees QTc Int : 460 ms Normal sinus rhythm Left anterior fascicular block Inferior infarct , age undetermined Abnormal ECG Confirmed by Young Jurado ([id number]), editor producer TAM CORNELL ([id number]) on 03/26/2024 11:28:38 AM Referred By: Roger Mistry Confirmed By:Young Jurado
[2024-03-25 14:39] LABS: Absolute Lymphocyte Count 2.32 X10^3/uL (0.83-4.51); Absolute Neutrophil Count 3.5 X10^3/uL (2.0-7.7); Basophil# 0.04 X10^3/uL; Basophil% 0.6 % (0-1); Eosinophil# 0.25 X10^3/uL; Eosinophils% 3.9 % (0-5); Hematocrit 38.8 % (37-47); Hemoglobin 12.6 g/dL (12.0-15.0); Lymphocyte # 2.32 X10^3/ul (0.83-4.51); Lymphocyte % 36.5 % (19-41); Mean Corp Hgb Conc 32.5 g/dL (32-36); Mean Corpuscular Hgb 30.1 pg (27.0-32.0); Mean Corpuscular Volume 92.8 fL (81-99); Mean Platelet Vol. 9.5 fl (6.2-12.0); Monocyte# 0.21 X10^3/uL; Monocyte% 3.3 % (0-10); NRBC Flagged by Analyzer 0 % (0-5); Neutrophil # 3.51 X10^3/uL (2.7-7.7); Neutrophil % 55.4 % (47-70); Platelet Count 240 K/mm3 (150-450); RBC Distribution Width CV 12.6 % (11.6-14.6); RBC Distribution Width SD 42.8 fl (35.1-43.9); Red Blood Count 4.18 M/mm3 (4.2-5.4); White Blood Count 6.4 K/mm3 (4.4-11.0)
[2024-03-25 14:46] LABS: International Normalized Ratio 0.9; Prothrombin Time (Protime)PT. 12.6 SECONDS (11.7-14.9)
[2024-03-25 14:47] LABS: Partial Thromboplast Time 27.8 Seconds (24.1-36.2)
[2024-03-25 15:24] LABS: Anion Gap 5 (5-15); BUN 13 mg/dL (7-18); BUN/Creat Ratio 17.1 RATIO (10-20); Calcium,Total 8.9 mg/dL (8.5-10.1); Chloride 108 mmol/L (98-107); Creatinine, Serum 0.76 mg/dL (0.55-1.02); EST Glomerular Filtration Rate 80 mL/min (>60); Est Glom Filt Rate - Afr Amer 97 mL/min (>60); Glucose 112 mg/dL (74-106); Potassium 3.4 mmol/L (3.5-5.1); Sodium Level 141 mmol/L (136-145)
[2024-03-25 20:29] LABS: AST(SGOT) 15 U/L (15-37); Alanine Aminotransfer ALT/SGPT 25 U/L (13-56); Albumin, Serum 3.7 g/dL (3.2-5.0); Alkaline Phosphatase 72 U/L (45-117); Bilirubin, Direct 0.11 mg/dL (0.00-0.30); Globulin 3.2 g/dL (2.2-4.2); Magnesium 2.2 mg/dL (1.6-2.6); Protein, Total 6.9 g/dL (6.4-8.2)
== END 2024-04-12 23:59 | disposition home or self-care (01) ==
LOC: PAT 08-19 14:18
PROVIDERS: Anesthesiology; PCP Internal Medicine; Referring Provider Student in an Organized Health Care Education/Training Program; Visit Provider Student in an Organized Health Care Education/Training Program
DX: Z01.818 Encounter for other preprocedural examination (principal); Z01.810 Encounter for preprocedural cardiovascular examination
CPT/HCPCS: 36415; 80048; 80076; 83735; 84443; 85025; 85610; 85730; 87081; 93005

== ENCOUNTER 2024-03-25 13:30 | Outpatient (CLI) | payer MEDICARE, OTHER, SELFPAY ==
--- NOTE | 2024-03-25 14:20 | CT_ITS ---
PROCEDURE: CT LEFT KNEE WITHOUT CONTRAST REASON FOR EXAM: Female, 69 years old. Preoperative planning for the MakoPlasty Robotic knee surgery. Knee pain. TECHNIQUE: Transaxial CT of the hip, knee and ankle were obtained. Coronal and sagittal reconstruction images of the knee were provided. Individualized dose optimization techniques were used for this CT. COMPARISON: None. FINDINGS: Standard protocol for the preoperative planning for the MakoPlasty robotic knee surgery was performed. Osteopenia with mild arthrosis of the hip, moderate arthrosis of the medial compartment of the knee, mild arthrosis of the lateral and patellofemoral compartments of the knee and mild arthrosis of the tibiotalar joint. Superior and inferior calcaneal spurs. CT/Extremity Lower without Contra IMPRESSION: Preoperative MakoPlasty Robotic knee surgical CT evaluation with findings as described above. Electronically Signed: Shawn Fitzgerald MD at 14:37 EDT ,
[2024-03-26 08:34] LABS: Albumin, Serum 3.8 g/dL (3.2-5.0)
== END 2024-03-25 23:59 | disposition home or self-care (01) ==
LOC: CT 13:31
PROVIDERS: PCP Internal Medicine; Referring Provider Student in an Organized Health Care Education/Training Program; Visit Provider Student in an Organized Health Care Education/Training Program
DX: Z01.818 Encounter for other preprocedural examination (principal); Z01.810 Encounter for preprocedural cardiovascular examination; S83.412D Sprain of medial collateral ligament of left knee, subsequent encounter; S83.282D Other tear of lateral meniscus, current injury, left knee, subsequent encounter
CPT/HCPCS: 36415; 73700; 80048; 80076; 82040; 83735; 84443; 85025; 85610; 85730; 87081; 93005

== ENCOUNTER 2024-05-20 14:48 | Observation (INO) | payer MEDICARE, OTHER, SELFPAY ==
[2024-05-20] VITALS (14 sets, daily range): BP systolic 126–166; BP diastolic 65–137; PULSE 82–103; RESP 8–18; TEMP 36.1–37; O2SAT 92–98; BMI 41.4
--- NOTE | 2024-05-20 11:08 | PRE.ANES_ITS ---
ASA Classification* ASA Classification ASA Classification: 2 and 3 Assessment & Plan Anesthesia* Anesthesia Assessment Anesthesia Assessment: Discussed sedation and/or anesthesia options, risks, benefits, and alternatives with patient/parents/legal guardian/POA. Questions invited. The patient/parents/legal guardian/POA seems to understand and agrees to proceed with anesthesia plan. Reviewed the physical assessment, medical history, allergy history and patient home medications list prior to surgery/procedure/anesthetic and documented any changes. Performed airway and anesthesia risk assessments. Anesthesia Type Anesthesia Type: General (see written pre anesthesia record for full assessment) Anesthesia Focused Assessment* Airway Assessment Mouth opens: >3 cm Mallampati Score: III Focused Labs Anesthesia Preop lab: CBC WBC 6.4 K/mm3 (4.4-11.0) 03/25/24 13:34 RBC 4.18 M/mm3 (4.2-5.4) L 03/25/24 13:34 Hgb 12.6 g/dL (12.0-15.0) 03/25/24 13:34 Hct 38.8 % (37-47) 03/25/24 13:34 Plt Count 240 K/mm3 (150-450) 03/25/24 13:34 CHEMISTRY Potassium 3.4 mmol/L (3.5-5.1) L 03/25/24 13:34 Sodium 141 mmol/L (136-145) 03/25/24 13:34 Magnesium 2.2 mg/dL (1.6-2.6) 03/25/24 13:34 BUN 13 mg/dL (7-18) 03/25/24 13:34 Creatinine 0.76 mg/dL (0.55-1.02) 03/25/24 13:34 Glucose 112 mg/dL (74-106) H 03/25/24 13:34 TSH 104.00 uIU/mL (0.358-3.74) H 03/25/24 13:34 COAG PT 12.6 SECONDS (11.7-14.9) 03/25/24 13:34 Pre-Assessment Diagnosis/Proposed Procedure Planned Operative Procedure(s): LEFT TOTAL KNEE ARTHROPLASTY ROBOTIC ASSISTED Anesthesia History Anesthesia History - foreign law consultant: Anesthesia History - foreign law consultant Hx Hospitalization No 05/07/24 10:56 Any Problems With Anesthesia No 05/07/24 10:56 Cholinesterase deficiency No 05/07/24 10:56 You/Your Family Experience No 05/07/24 10:56 fever (hyperthermia) with Relationship Recent Exposure to Contagious No 12/22/23 15:07 Disease Does patient have nerve No 05/07/24 10:56 stimulator Patient instructed to have device shut off --Does patient have Pacemaker or ICD? When Was Last Pacemaker Check QUESTION #4 FULL TEXT: You/Your Family Experience fever (hyperthermia) with Anesthesia Last Oral Intake Last Oral intake: Last Oral Intake NPO since Meds taken in AM with sips of water? Meds patient instructed to take am of surgery PONV PONV - foreign law consultant: PONV - foreign law consultant Female Yes 05/07/24 10:56 HX of Motion Sickness Yes 05/07/24 10:56 HX of N/V After Surgery No 05/07/24 10:56 Non-Smoker Yes 05/07/24 10:56 Duration of Surgery greater Yes 05/07/24 10:56 than 60 minutes Number of Risk Factors 4 05/07/24 10:56 PONV Score Severe Risk 05/07/24 10:56 Height & Weight Height & Weight: Anesthesia: Height & Weight Height 5 ft 5 in 12/22/23 15:22 Respiratory Assessment Respiratory Assessment - foreign law consultant: Respiratory Tract Infection Hx - foreign law consultant Hx Respiratory Tract Infection No 05/07/24 10:56 STOP Sleep Apnea STOP Sleep Apnea - foreign law consultant: STOP Sleep Apnea - foreign law consultant Hx Hypertension No 05/07/24 10:56 Hx Sleep Apnea Yes 05/07/24 10:56 CPAP Yes 05/07/24 10:56 BIPAP No 05/07/24 10:56 Do you snore loudly (louder than talking or can be heard Do you often feel tired/ fatigued/ sleepy during daytime? Has anyone observed you stop breathing during sleep? STOP Results Positive 05/07/24 10:56 QUESTION #5 FULL TEXT : Do you snore loudly (louder than talking or can be heard through closed doors)? 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 Specify any problems Hx of Preganancy in last 3 No 05/07/24 10:56 Months Nurse Filling Out Transfusion DSCHRIBER 05/07/24 10:56 & Questions: Date: 05/07/24 05/07/24 10:56 Time: 10:57 05/07/24 10:56 Patient unable to answer at this time (ie. confused, unrespo /Reproduction History /Reproductive History - foreign law consultant: /Reproductive Hx- foreign law consultant Hx Now Gestational Age (in weeks): EDC: Hx Hx Para Hx Section SAB No 05/07/24 10:56 Active Medications Active Medications: Current Medications Generic Name Dose Route Start Last Admin Trade Name Freq PRN Reason Stop Dose Admin Acetaminophen 1,000 mg 05/20/24 13:35 Acetaminophen 500 Mg Tablet PO 05/20/24 13:36 X1 ONE Celecoxib 400 mg 05/20/24 13:35 Celecoxib 200 Mg Capsule PO 05/20/24 13:36 X1 ONE Sodium Chloride 77.4 ml/ 0 ml 05/20/24 13:35 Ropivacaine 200 mg/ OPERA.SITE 05/20/24 13:36 Epinephrine HCl 0.6 mg/ X1 ONE Ketorolac Tromethamine 30 mg/ Morphine Sulfate 5 mg Dexamethasone Sodium Phosphate 10 mg 05/20/24 13:35 Dexamethasone 10 Mg/Ml Vial IV 05/20/24 13:36 X1 ONE Gabapentin 600 mg 05/20/24 13:35 Gabapentin 600 Mg Tablet PO 05/20/24 13:36 X1 ONE Lactated Ringer's 1,000 mls @ 999 mls/hr 05/20/24 13:35 IV 05/20/24 14:35 .Q1H1M RUDY Cefazolin Sodium 2 gm/ Sodium 110 mls @ 150 mls/hr 05/20/24 13:35 Chloride IV 05/20/24 14:18 PREOP ONE Tranexamic Acid 1,000 mg/ 110 mls @ 660 mls/hr 05/20/24 13:35 Sodium Chloride IV 05/20/24 13:44 X1 ONE Tranexamic Acid 1,000 mg/ 110 mls @ 660 mls/hr 05/20/24 14:35 Sodium Chloride IV 05/20/24 14:44 X1 ONE Lactated Ringer's 1,000 mls @ 999 mls/hr 05/20/24 14:30 IV 05/20/24 15:30 .Q1H1M RUDY Lactated Ringer's 1,000 mls @ 125 mls/hr 05/20/24 15:30 IV 05/20/24 23:29 .Q8H RUDY Magnesium Sulfate 1 gm/ 102 mls @ 408 mls/hr 05/20/24 13:35 Dextrose IV 05/20/24 13:49 X1 ONE Lactated Ringer's 1,000 mls @ 15 mls/hr 05/20/24 11:00 IV .Q48H RUDY Insulin Human Lispro 1 - 6 unit 05/20/24 13:35 Insulin Lispro 100 Unit/Ml Insuln.Pen SC 05/20/24 19:35 Q4H PRN PRN BG>/= 180, SEE PROTOCOL Protocol PFSH Medical History Cardiology follow-up encounter History of echocardiogram Wears glasses Wears dentures Depression Anxiety Thyroid disease Arthritis Low iron High cholesterol Easy bruising Restless legs Migraine headache History of ulceration Former smoker CPAP (continuous positive airway pressure) dependence Leg cramps History of pain when walking History of edema Nicotine addiction YARI on CPAP Osteoarthritis Screening for osteoporosis History of breast cancer Screening for breast cancer Hypersomnolence Cough Suspected COVID-19 virus infection Shortness of breath Atypical chest pain Health care maintenance Hypertension Left foot pain Colon cancer screening Health care maintenance Morbid obesity Aromatase inhibitor use Malignant neoplasm of overlapping sites of right breast in female, estrogen receptor positive Hyperlipidemia Hypothyroidism Anxiety and depression Home Medications ?Medication ?Instructions ?Recorded ?Last Taken ?Type meloxicam 7.5 mg tablet 15 mg PO 1200 swelling 03/13/23 Unknown History anastrozole 1 mg tablet See Rx Instructions .Route 09/30/23 Unknown Rx .COMPLEX #90 tabs gabapentin 100 mg capsule 300 mg PO 1200 12/22/23 Unknown History acetaminophen 500 mg tablet 1,000 mg PO Q6H PRN PRN pain 03/22/24 Unknown History (Acetaminophen Extra Strength) bupropion HCl 150 mg 24 hr tablet, 150 mg PO DAILY 03/22/24 Unknown History extended release (Wellbutrin XL) levothyroxine 200 mcg tablet 200 mcg PO DAILY 03/22/24 Unknown History sertraline 100 mg tablet 100 mg PO DAILY 03/22/24 Unknown History atorvastatin 40 mg tablet 40 mg PO QHS 05/07/24 Unknown History Allergy/AdvReac Type Severity Reaction Status Date / Time No Known Allergies Allergy Verified 05/20/24 11:08 Family History Mother Diabetes Heart disease Hypertension Thyroid disorder Grandmother Colon cancer Sister Breast cancer Surgical History Hx of surgical procedure Hx of arthroscopic knee surgery History of right total mastectomy (~03/2020) History of 3 sections Social History Smoking Status: Former smoker Electronic Cigarette Use: with nicotine second hand exposure: No alcohol intake: never substance use type: does not use sy/oriental orthodox: Amish seatbelt use: always do you feel safe at home: Yes Review of Systems (Anesthesia) ROS Narrative System reviewed and no additional complaints, except as documented.
[2024-05-20] MEDS: Gabapentin 600 MG Tablet PO (11:14)
[2024-05-20] MEDS: Magnesium 1 GM over 15 mins IV (11:14)
[2024-05-20] MEDS: Celecoxib 200 MG Capsule 400 MG PO (11:14)
[2024-05-20] MEDS: Lactated Ringers 1,000 ML 999 ML IV ×2 (11:14→15:13)
[2024-05-20] MEDS: Acetaminophen 500 MG Tablet 1000 MG PO ×2 (11:15→21:07)
[2024-05-20 12:29] LABS: Bedside Glucose 77 mg/dL (74-106)
[2024-05-20] MEDS: Cefazolin 2 GM in 0.9% Normal Saline (100mL Bag) 100 ML IV (12:53)
[2024-05-20] MEDS: TXA 1000mg in NS100 100ml (IVPB at Incision) 660 MG IV (13:04)
[2024-05-20] MEDS: dexAMETHasone 10 MG/ML Vial IV (13:06)
--- NOTE | 2024-05-20 13:15 | KNEE_PTH ---
PATIENT: MANSI HERNANDEZ LOC: [facility] U#:[id number] AGE/SX: 69/F ROOM: AK316 RE05/20/[address]: Dr. Roger Mistry DO : 1955 BED: 1 DIS: 05/21/2024 SPEC #: [id number] RECD: 05/20/24 16:57 STATUS: BARNEY ANGELA #: [id number] AMADEO: 05/20/24 13:[address]: Roger Mistry DEPT: SURGICAL PATHOLOGY RECD BY: Letty Chavarria ENTERED: 05/21/24 07:39 SP TYPE: TOTAL KNEE OTHR DR: Dr. Mariza Gonzalez DO Tissues: Knee, NOS Procedures: Decalcification bone/plaque Surgery Specimen Level IV HEADER OPERATION: Total knee replacement robotic arm assist PRE-OP DIAGNOSIS: Osteoarthritis left knee TISSUE SUBMITTED: Bone and soft tissue left knee MICROSCOPIC DIAGNOSIS Bone and tissue of left knee, total knee resection: Severe degenerative joint disease. AM: 05/26/2024 MICROSCOPIC DESCRIPTION Slides are reviewed. GROSS DESCRIPTION Received is one container designated bone and soft tissue left knee. The specimen consists of multiple fragments of robbins-yellow bone measuring in aggregate 10.0 x 9.0 x 3.0 cm. No soft tissue is identified. A number of bony fragments contain articular surfaces consistent with tibial plateau and femoral condyle and displaying prominent osteophyte formation, eburnation and bone erosion. Packing Room Supervisor sections are submitted in two cassettes after decalcification. 05/21/2024 TC:5 CPT: 75112, 47153
[2024-05-20] MEDS: JPS (Morphine 10mg/ml) OPERA.SITE (14:18)
[2024-05-20] MEDS: TXA 1000mg in NS100 100ml (IVPB at Closure) 660 MG IV (14:20)
--- NOTE | 2024-05-20 15:02 | RAD_ITS ---
STUDY: X-RAY - LEFT KNEE REASON FOR EXAM: Female, 69 years old. Post op -- AP and Lateral xray of operative knee in PACU TECHNIQUE: 2 view(s) of the knee. COMPARISON: None. FINDINGS: Normal visualized distal femur. Normal visualized proximal tibia and fibula. Normal proximal tibiofibular articulation. The patient is status post total knee replacement. There is good alignment. Postoperative soft tissue changes. RAD/Knee 1 or 2 Views IMPRESSION: Status post total knee replacement. There is good alignment. Postoperative soft tissue changes. Electronically Signed: Martin Hearn MD at 15:31 EDT ,
--- NOTE | 2024-05-20 15:07 | OP.PCM_ITS ---
Report of Operation Date of Procedure: 05/20/24 Description of Surgical Findings:: Preoperative diagnosis: Left knee primary osteoarthritis Postoperative diagnosis: Left knee primary osteoarthritis Procedure: Left total knee arthroplasty Surgeon: Roger Mistry DO Tourism Radio Presenter: Veda Alba PA-C Anesthesia: General Endotracheal Anesthesiologist: Dr. Law Complications: None apparent Drains: None Estimated blood loss: 50 cc Urinary output: None recorded IV fluids: 1000 cc crystalloid Specimens: Total knee resections Surgical implants: [place] TriTanium triathlon size #4 press-fit femur, size #5 press-fit tibia, 9 mm polyethylene insert Indications: This is a 69-year-old female seen in the outpatient setting diagnosed with left knee osteoarthritis with significant varus deformity. She failed nonoperative management with intra-articular corticosteroid injections, activity modification, bracing, oqfq-awu-rounnno analgesics. X-rays revealed grade 4 medial compartment changes. She had minimal patellofemoral joint degenerative changes. I recommended a left total knee arthroplasty. The risks, benefits, alternatives to procedure reviewed with patient at length and she agreed to proceed. Risks included but were not limited to bleeding, infection, loss of life or limb, need for additional surgery, persistent pain, intraoperative or postoperative fracture, instability, loosening of components, wound complications, stiffness, neurovascular injury, DVT or PE. Patient expre ssed understanding these risks and wished to proceed with surgery. Informed consent was obtained in the outpatient setting. Description of procedure: Patient was identified in the preoperative holding area by name, medical record number, and date of . Informed set was confirmed with the patient. The operative knee was marked with a surgical marker. At time of his procedure, patient brought to the operative suite and positioned supine a standard operating table. General anesthesia was induced and endotracheal tube placed. We then placed a well-padded pneumatic tourniquet on the left upper thigh. The left upper extremity was brought across patient's chest throughout the procedure. We then prepped and draped the left lower extremity in a normal, sterile orthopedic fashion. We performed a timeout with all parties in attendance in agreement with the side, site, operation be performed. No concerns were voiced and would like to proceed with surgery. 2 g Ancef was administered prior to the incision by anesthesia staff as well as 1 g IV TXA. First exsanguinated the left lower extremity with a Esmarch bandage. Tourniquet was inflated to 280 mmHg, which remained up for 66 minutes. Esmarch was removed. I planned a standard midline approach to the left knee approximately 15 cm in length. Skin was sharply incised with a 10 blade scalpel developing full-thickness layers down to the retinaculum. Layers were developed identifying the VMO. I then planned a standard medial parapatellar arthrotomy performed in flexion. The anterior horn of the medial meniscus was released. Hoffa's fat pad was then released. I then everted the patella in extension and brought the knee into 90 degrees of flexion. The anterior horn of the lateral meniscus was then released. The ACL was split in its mid substance with a 10 blade. Hoffa's fat pad was significantly scarred from prior arthroscopy and excised. The patella was then examined. The cartilage demonstrated grade 1?2 chondromalacia and I made the decision to leave the patella [place]. I then placed pins in the metaphyseal distal femur medial to lateral for the Porfirio arrays. In similar fashion, I made a 2 cm incision approximately a handsbreadth distal to the tibial tubercle along the medial aspect of the tibia, drilling 2 bicortical pins for the tibial array. The knee was brought into flexion. The patella was subluxed laterally but not everted. Medial lateral retractors were placed. We then utilized the CoCollage software to confirm our planned surgical procedure and oriented with the patient's osseous anatomy. All checks with the CoCollage system were confirmed. Patient had a significant fixed varus deformity after performing stress examination utilizing the Porfirio software. We elected to place the tibial baseplate in approximately 3 degrees of varus to allow for appropriate balancing. Sawblade was then brought in. I first started with the tibial cut, ensuring protection of the MCL and patellar tendon. A tibial wafer was then excised. I then proceeded to make the posterior femoral, anterior, anterior chamfer cuts with the same blade. Ligaments were protected with Intermedics retractors. Sawblade was then exchanged to perform the distal femoral and posterior chamfer cuts. The robot was then removed from the surgical field. Remaining loose bone and meniscus was excised carefully. Posterior osteophytes were removed from the distal femur with a curved osteotome and rongeur. Trial components were then placed. Balance was excellent in both extension and 90 degrees flexion. No mid flexion instability was apparent. Tracking was excellent. We then marked for tibial baseplate. Distal femoral pegs were drilled. Tibial keel was punched. Press-fit drill guide was then placed for the 4 peripheral pegs. Trials were removed. Periarticular block was administered. The wound was copiously irrigated with normal saline solution. The tibial and subsequently femoral components were impacted to appropriate depth with excellent initial pullout strength. Tourniquet was deflated. Hemostasis was excellent. An additional 1 g TXA was administered IV. I selected a size 9 mm polyethylene which was placed and impacted per vessel scrapper helper recommendations. Final components appeared very well balanced with excellent range of motion. A 3-minute diluted sterile Betadine soak was performed. The wound was copiously irrigated with normal saline solution. Capsule was closed watertight with #1 strata fix barbed suture. Deeper bursal layer was reapproximated with 0 Vicryl suture. Dermis was reapproximated buried interrupted 2-0 Vicryl suture. Skin was finally reapproximated rickey. Patient tolerated the procedure well without apparent complication. She was safely awakened in the operative suite, transferred to his hospital bed and subsequently to PACU in stable condition. She then underwent adductor canal block in the PACU. Need for skilled real estate legal assistant: Veda Alba PA-C was critical to the outcome of the case. During the course of the procedure the physician real estate legal assistant played a vital role. Her intimate knowledge of my steps in the procedure aided in safe and expedient completion of the procedure. The PA played a vital role in positioning particularly in obtaining the appropriate positioning. The PA was also vital in the retraction of soft tissues during the exposure and projecting vital structures. The PA was also vital and protecting soft tissues during times of bony cuts. She also played a vital role in closure with my direct supervision. The PA was also important during reduction and dislocation of the joint and trials intraoperatively. Post Operative Plan: Patient will be placed in observation overnight. Patient does live at home alone with no family in the area. She does have a friend to stay with her postoperatively and I anticipate discharge home tomorrow. Weightbearing: Range of motion and weightbearing as tolerated left lower extremity. Antibiotics: Ancef 2 g every 8 hours x 3 doses DVT Prophylaxis: Plan for 2 weeks Xarelto due to anastrozole therapy and history of breast cancer. Mckeon: None Dressing: Maintain silver dressing x5 days X-Rays: 2-week x-rays in the office. Follow-up: 2 weeks in my office for staple removal
[2024-05-20] MEDS: Lactated Ringers 1,000 ML 125 ML IV (15:54)
--- NOTE | 2024-05-20 16:03 | SUR.PHASEI ---
No polar care available for use in pacu
--- NOTE | 2024-05-20 16:04 | SUR.PHASEI ---
patient wears cpap at home
--- NOTE | 2024-05-20 16:08 | SUR.PHASEI ---
family update via hospital secretary
--- NOTE | 2024-05-20 16:12 | PCM.POST.ANE ---
Anesthesia: Postop Eval I Current Vital Signs Temperature: 97.5 F Pulse Rate: 82 Blood Pressure: 126/80 Respiratory Rate: 16 Pulse Ox: 94 Assessment Airway patent: Yes Spontaneous unlabored respirations: Yes nausea: No Vomiting: No Anesthesia Complication: No Fluid Hydration Crystalloid volume administer (ml): 700 Total IV fluid infused: 700 Progress Note Anesthesia document: Postop Eval 1 completed: Yes
--- NOTE | 2024-05-20 16:13 | SUR.PHASEI ---
awaiting call back from [facility] charge. patient needs O2 while sleeping. wears cpap athome
--- NOTE | 2024-05-20 16:13 | PCM.POSTANE2 ---
Anesthesia Postop Eval I Sum Postop Eval Completion status Anesthesia document: Postop Eval 1 completed: Yes Anesthesia Postop Eval I Summary Anesthesia Postop Eval I Summary: Anesthesia Postop Eval I: Assessment Summary Airway patent Yes 05/20/24 16:13 Spontaneous unlabored Yes 05/20/24 16:13 respirations Mental status nausea No 05/20/24 16:13 Vomiting No 05/20/24 16:13 Anesthesia Postop Eval I: Fluid Summary Crystalloid volume administer 700 05/20/24 16:13 (ml) Colloids volume administered ( ml) Blood Product volume administered (ml) Total IV fluid infused 700 05/20/24 16:13 Anesthesia Postop Eval I: Summary Notes Anesthesia Complication No 05/20/24 16:13 Anesthesia Complication Comment: Post-operative progress note Anesthesia: Postop Eval II Evaluation Mental status: Awake Pain Level: 2 nausea: No Vomiting: No
[2024-05-20] MEDS: oxyCODONE 5 MG Tablet PO (20:52)
[2024-05-20] MEDS: Cefazolin 1 GM/50 ML BAG IV (20:54)
[2024-05-20] MEDS: Atorvastatin Calcium 40 MG Tablet PO (21:07)
[2024-05-20] MEDS: Senna/Docusate Sodium 1 Tablet 2 TABLET PO (21:08)
[2024-05-21 02:34] VITALS: BP 152/68; PULSE 90; RESP 15; TEMP 36.6; O2SAT 97
[2024-05-21] MEDS: oxyCODONE 5 MG Tablet PO ×4 (03:13→14:42)
[2024-05-21] MEDS: Cefazolin 1 GM/50 ML BAG IV (05:18)
[2024-05-21 06:00] VITALS: RESP 15
[2024-05-21] MEDS: Levothyroxine 100 MCG Tablet 200 MCG PO (06:50)
[2024-05-21] MEDS: Acetaminophen 500 MG Tablet 1000 MG PO ×2 (06:51→14:21)
[2024-05-21 07:09] LABS: Hematocrit 32.2 % (37-47); Hemoglobin 10.6 g/dL (12.0-15.0); Mean Corp Hgb Conc 32.9 g/dL (32-36); Mean Corpuscular Hgb 30.4 pg (27.0-32.0); Mean Corpuscular Volume 92.3 fL (81-99); Mean Platelet Vol. 9.4 fl (6.2-12.0); Platelet Count 205 K/mm3 (150-450); RBC Distribution Width CV 12.6 % (11.6-14.6); RBC Distribution Width SD 41.5 fl (35.1-43.9); Red Blood Count 3.49 M/mm3 (4.2-5.4); White Blood Count 12.1 K/mm3 (4.4-11.0)
[2024-05-21 08:06] VITALS: O2SAT 88
[2024-05-21 08:08] LABS: Anion Gap 6 (5-15); BUN 21 mg/dL (7-18); Calcium,Total 8.5 mg/dL (8.5-10.1); Chloride 107 mmol/L (98-107); EST Glomerular Filtration Rate 89 mL/min (>60); Est Glom Filt Rate - Afr Amer 107 mL/min (>60); Estimated Creatinine Clearance 84.36 ml/min; Glucose 126 mg/dL (74-106); Potassium 4.1 mmol/L (3.5-5.1); Sodium Level 138 mmol/L (136-145)
[2024-05-21 08:18] VITALS: BP 129/60; PULSE 74; RESP 16; TEMP 36.8; O2SAT 95
--- NOTE | 2024-05-21 08:30 | PCM.PN.ORT ---
Subjective Subjective Patient is s/p left total knee arthroplasty with Dr. Mistry 05/20/2024. Patient resting comfortably in bed. Rates pain 4/ 10 at rest. With movement 6/10. States taking Tylenol oxycodone and meloxicam and ice help to relieve pain. Patient has been up with therapy. Walking with the assit of a walker. Afebrile, no chest pain, shortness of breath, negative calf pain/ erythema, and no other signs of DVT. Objective Data Objective Data Vital Signs: Vital Signs Temp Pulse Resp BP Pulse Ox O2 Del Method O2 Flow Rate 98.2 F 74 16 129/60 H 95 Nasal Cannula 2 05/21/24 08:18 05/21/24 08:18 05/21/24 08:18 05/21/24 08:18 05/21/24 08:18 05/21/24 08:18 05/21/24 08:18 Oxygen Flow Rate (L/min) 2 Oxygen Delivery Method Nasal Cannula Weight: 113 kg Body Mass Index (BMI) 41.4 Intake & Output: Intake and Output for Last 24 Hours 05/19/24 05/20/24 05/21/24 23:59 23:59 23:59 Intake Total 3596.58 / 3596.58 250 / 250 Output Total 1450 / 1450 600 / 600 Balance 2146.58 / 2146.58 -350 / -350 Lab / Micro Data 05/21/24 06:44 05/21/24 06:44 Labs: Laboratory Results - last 24 hr 05/20/24 11:10: POC Glucose 77 05/21/24 06:44: WBC 12.1 H, RBC 3.49 L, Hgb 10.6 L, Hct 32.2 L, MCV 92.3, MCH 30.4, MCHC 32.9, RDW Std Deviation 41.5, RDW Coeff of Sarah 12.6, Plt Count 205, MPV 9.4, Sodium 138, Potassium 4.1, Chloride 107, Carbon Dioxide 25.0, Anion Gap 6, BUN 21 H, Creatinine 0.70, Estim Creat Clear Calc 84.36, Est GFR (MDRD) Af Amer 107, Est GFR (MDRD) Non-Af 89, BUN/Creatinine Ratio 30.0 H, Glucose 126 H, Calcium 8.5 Radiography Diagnostic Testing: Radiology Impression Knee X-Ray 05/20/24 15:02 IMPRESSION: Status post total knee replacement. There is good alignment. Postoperative soft tissue changes. Electronically Signed: Martin Hearn MD at 15:31 EDT , Physical Exam Narrative Patient resting comfortably in bed No signs of acute distress Satting well on room air Limb is warm to touch, Sensation intact throughout entire lower extremity, including saphenous, sural, superficial and deep peroneal, and tibial distribution. DP/PT pulses bounding. Dorsiflexion plantarflexion strength 5/5 Dressing clean dry intact Calf nontender to palpation, no erythema, no edema. Negative Homans Assessment & Plan Assessment/Plan (1) S/P total knee arthroplasty: PLAN: 1. Will continue PT today. Weightbearing as tolerated 2. plan for discharge home this afternoon following PT 3. Patient will follow up for post op appointment on in 2 weeks as previously scheduled 4. Patient has outpatient PT appointment as previously scheduled 5. WBC 12.1 acute reactive leukocytosis: secondary to pre operative decadron. no acute systemic signs of infection. will monitor, and likely self resolve. 6. H/H 10.6/32.2: post operavtive anemia secondary to acute blood loss intraoperatively. Patient is asymptomatic at this time. No intraoperative complications. will continue to monitor. no acute interventions. 7. DVT prophylaxis : Xarelto 10 mg once daily x 2 weeks followed by aspirin 81 mg twice daily x 2 weeks. 8. Pain control: patient instructed to take tylenol 500mg 2 tablets TID. and oxycodone 1-2 tablets every 4-6 hours only as needed for pain control. 9. Patient also given prescription of doxycycline 100 mg twice daily x 1 week for prophylaxis due to elevated BMI. 10. ok to remove post op dressing. post op day 5
--- NOTE | 2024-05-21 09:40 | CASEMGMT ---
STEPHENIE JULIO Face to Face with patient for initial transition planning/care coordination assessment. RN CM introduced self and role at [facility]. Patient sitting in chair, alert and oriented. Patient willing to participate in assessment and is able to answer all questions appropriately. Care providers, pharmacy, and demographics verified. Strata: 1 PCP: Carlos Specialists: justen Mistry Pharmacy: [facility] Insurance: [facility], [place] Prescription Benefit: yes Living Will/HPOA: none LNOK: Friend Living Arrangements: Patient lives alone in a single story home with 2 steps and railing to enter. Patient states her friend Murphy will be staying with her for a few weeks to assist with needs. Patient states she is independent at home. Transportation: Murphy DME/C: Patient has shower chair, raised toilet, cane, walker, grab bars at home. Patient is scheduled for outpatient therapy at starting on Friday. Patient wishes to discharge home with outpatient therapy. Patient states she has no further needs or concerns at this time. CM to follow for discharge planning needs that may arise. Disposition Plan: Patient to discharge home with outpatient therapy, support from friend, and follow-up plans in place. Aliza CLARK, RN, CM
[2024-05-21] MEDS: buPROPion (XL) 150 MG TABLET.XL PO (09:47)
[2024-05-21] MEDS: Senna/Docusate Sodium 1 Tablet 2 TABLET PO (09:52)
[2024-05-21] MEDS: Aspirin E.C. 81 MG Tablet PO (09:52)
[2024-05-21 11:29] VITALS: O2SAT 95
[2024-05-21] MEDS: Gabapentin 300 MG Capsule PO (11:41)
--- NOTE | 2024-05-21 13:55 | PCM.DC ---
Discharge Instructions Diet Discharge Diet: No restrictions Activity Weight Bearing Status: Weight bearing as tolerated Dressing / Incision Call your doctor if your incision/area has: Continuous Slow Oozing, Sudden Increased Bleeding, Increased Pain/ Swelling, Increased Redness, Foul Smelling Discharge and Swelling at the incision site Call your doctor if you observe: Fever of 101 or Higher, Inability to urinate, Inability to have a bowel movement, Shortness of breath, Dizziness, Swelling in the ankles, Chest pain, Increased palpitations (irregular heartbeat) and Calf discomfort Remove Dressing in: 5 days Cleanse incision/area with: Soap & Water and Keep Dressing Clean & Dry Additional Dressing/Incision Instructions:: follow up with urology or call our office if having trouble voiding. Follow Up Care When: as previously scheduled with [facility]. Test Results: Test results from this visit will be discussed in further detail at your follow-up appointment, if applicable. Discharge Plan Admission Admit Date/Time: 05/20/24 14:48 Attending Provider: Roger Mistry Primary Care Provider: Mariza Gonzalez Instructions Additional Instructions / Restrictions: follow up with urolology if trouble voiding. Discharge Orders/Prescriptions Prescriptions: New acetaminophen 500 mg Tablet 1,000 mg PO Q8 Qty: 180 0RF Xarelto 10 mg Tablet 10 mg PO DINNER 14 Days Qty: 14 0RF oxycodone 5 mg Tablet 5 - 10 mg PO .q4-6hrs prn PRN (Reason: Pain Score 4-10) 7 Days Qty: 60 0RF sennosides-docusate sodium [Stimulant Laxative Plus] 8.6-50 mg Tablet 2 tab PO BID Qty: 14 0RF doxycycline hyclate 100 mg tablet 100 mg PO BID 7 Days Qty: 14 0RF Continued meloxicam 7.5 mg tablet 15 mg PO 1200 gabapentin 100 mg capsule 300 mg PO 1200 sertraline 100 mg tablet 100 mg PO DAILY bupropion HCl [Wellbutrin XL] 150 mg tablet extended release 24 hr 150 mg PO DAILY levothyroxine 200 mcg tablet 200 mcg PO DAILY atorvastatin 40 mg tablet 40 mg PO QHS anastrozole 1 mg tablet See Rx Instructions .ROUTE .COMPLEX Qty: 90 3RF Dose Instruction: TAKE ONE TABLET BY MOUTH DAILY Rx Instructions: TAKE ONE TABLET BY MOUTH DAILY Discontinued acetaminophen [Acetaminophen Extra Strength] 500 mg tablet 1,000 mg PO Q6H PRN PRN (Reason: pain) Referrals / Follow Up: Mariza Gonzalez DO [Primary Care Provider] - Disposition Disposition (needs filled in before D/C Order can be placed): Home, Self Care
[2024-05-21 14:11] VITALS: BP 143/64; PULSE 87; RESP 18; TEMP 36.7; O2SAT 90
[2024-05-21] MEDS: Sertraline 100 MG Tablet PO (14:21)
--- NOTE | 2024-05-21 15:27 | CASEMGMT ---
STEPHENIE JULIO NOTE: Discharge order is in. Xarelto 10 mg tab has been e-scribed to [facility]. Call placed to Jason in the pharmacy. Xarelto has been processed, pt's cost is $245.76. The other medications ordered total $10.60. STEPHENIE JULIO to room. Pt resting in bed. @ bedside. They were made aware of cost and aware of importance of taking Xarelto. Pt states she can only afford $100. She placed call to her son, Alexandr, who agreed to pay the remaining balance and states he will call the pharmacy to apply the payment. He was provided w/the pharmacy's phone #. STEPHENIE JULIO placed call to the pharmacy to make them aware. Pt denies having other discharge needs, concerns, questions. They will go through the pharmacy drive-thru to pickle [facility] Rx's. RNJackelin, made aware. Deborah CLARK RN, CM
== END 2024-05-21 16:25 | disposition home or self-care (01) ==
LOC: MS3 15:14 → SDC 15:14 → MS3 15:14
PROVIDERS: Admitting Provider Student in an Organized Health Care Education/Training Program; PCP Internal Medicine; Referring Provider Student in an Organized Health Care Education/Training Program; Visit Provider Student in an Organized Health Care Education/Training Program
PROC: 0SRD0JZ Replacement of Left Knee Joint with Synthetic Substitute, Open Approach (ICD-10-PCS; CPT 27447; principal; 2024-05-20 12:45)
DX: M17.12 Unilateral primary osteoarthritis, left knee (principal); M06.9 Rheumatoid arthritis, unspecified; M21.162 Varus deformity, not elsewhere classified, left knee; E78.00 Pure hypercholesterolemia, unspecified; F32.A Depression, unspecified; Z79.899 Other long term (current) drug therapy; E07.9 Disorder of thyroid, unspecified; Z79.890 Hormone replacement therapy
CPT/HCPCS: 27447; 01402; 64447; S2900; 36415; 73560; 80048; 82962; 85027; 88305; 88311; 94668; 96361; 96365; 96366; 97162; 97166; 99221; C1776; J7120; G0378; J2405; J3475